=== PATIENT | female | born 1960 | race Caucasian/White ===

== ENCOUNTER 2018-01-29 09:03 | Day surgery (SDC) | payer OTHER | END 2018-01-29 10:00 | disposition home or self-care (01) | LOC: MDS 09:03 → MMU 09:03 → MDS 10:00 → EDSEX 12:30 | PROVIDERS: ATTEND Internal Medicine Gastroenterology | DX: K70.9 Alcoholic liver disease, unspecified (principal); Z53.8 Procedure and treatment not carried out for other reasons; B19.20 Unspecified viral hepatitis C without hepatic coma ==

== ENCOUNTER 2018-02-16 09:02 | Day surgery (SDC) | payer OTHER ==
[~2018-02-16] VITALS: Ht 162.6 cm; Wt 67.1 kg
[2018-02-16] MEDS ORDERED: LIDOCAINE 2% 1000 MG/50 ML VIAL INJ ONE (12:59)
== END 2018-02-16 14:40 | disposition home or self-care (01) ==
LOC: MMU 09:02 → MDS 09:02
PROVIDERS: ATTEND Internal Medicine Gastroenterology
DX: B18.2 Chronic viral hepatitis C (principal); K74.0 Hepatic fibrosis; E11.9 Type 2 diabetes mellitus without complications; Z98.51 Tubal ligation status; Z98.890 Other specified postprocedural states
CPT/HCPCS: 47000; 76942; 82948; 88307; 88313; J2001; Q0092

== ENCOUNTER 2018-03-12 06:24 | Day surgery (SDC) | payer OTHER ==
[~2018-03-12] VITALS: Ht 162.6 cm; Wt 67.1 kg
[2018-03-12] MEDS ORDERED: fentaNYL 0.05 MG/ML VIAL ONE (08:53)
[2018-03-12] MEDS ORDERED: KETOROLAC 30 MG/ML VIAL ONE (08:54)
[2018-03-12] MEDS ORDERED: MIDAZOLAM 2 MG/2 ML VIAL ONE (08:54)
[2018-03-12] MEDS ORDERED: LIDOCAINE 2% 100 MG/5 ML UJET TP ONE (08:54)
[2018-03-12] MEDS ORDERED: fentaNYL 0.05 MG/ML VIAL IVP ONE (09:35)
[2018-03-12] MEDS ORDERED: MIDAZOLAM 2 MG/2 ML VIAL IVP ONE (09:35)
[2018-03-12] MEDS ORDERED: MIDAZOLAM 2 MG/2 ML VIAL IVP SCH (10:00)
[2018-03-12] MEDS ORDERED: fentaNYL 0.05 MG/ML VIAL IVP SCH (10:00)
== END 2018-03-12 10:37 | disposition home or self-care (01) ==
LOC: MMU 06:24 → MDS 06:24
PROVIDERS: ATTEND Internal Medicine Gastroenterology
DX: Z12.11 Encounter for screening for malignant neoplasm of colon (principal); D12.7 Benign neoplasm of rectosigmoid junction; K64.8 Other hemorrhoids; K44.9 Diaphragmatic hernia without obstruction or gangrene; K31.89 Other diseases of stomach and duodenum; K57.30 Diverticulosis of large intestine without perforation or abscess without bleeding; K74.69 Other cirrhosis of liver; E11.9 Type 2 diabetes mellitus without complications; Z86.19 Personal history of other infectious and parasitic diseases; Z98.51 Tubal ligation status; Z98.890 Other specified postprocedural states
CPT/HCPCS: 36415; 43239; 45385; 82948; 86677; J2250; J3010; J1885